=== PATIENT | female | born 1930 | race Caucasian/White ===

== ENCOUNTER → 2020-12-23 | Outpatient (CLI) | payer MEDICARE, OTHER ==
[~2020-12-23] MED LIST: NEURONTIN 100100 MG PO; PHENERGAN 25 MG25 M1 PO
== END ==
LOC: HEART CORB 14:05
DX: I48.91 Unspecified atrial fibrillation (principal); J90 Pleural effusion, not elsewhere classified; D64.9 Anemia, unspecified; I08.3 Combined rheumatic disorders of mitral, aortic and tricuspid valves; I27.20 Pulmonary hypertension, unspecified
CPT/HCPCS: 93306